=== PATIENT | female | born 1970 | race African-American/Black ===

== ENCOUNTER 2017-08-02 21:08 | Inpatient (IN) | payer MEDICAID ==
[~2017-08-02] VITALS: Ht 160 cm; Wt 99.8 kg
[2017-08-02] MEDS ORDERED: MORPHINE SULFATE 4 MG/ML CPJ (NOT FOR IM USE) IV STA (23:05)
[2017-08-02] MEDS ORDERED: ONDANSETRON HCL 4MG/2ML VIAL IV STA (23:05)
[2017-08-02] MEDS ORDERED: NITROGLYCERIN OINT 1GM/INCH UDPKT TD ONE (23:15)
[2017-08-02] MEDS ORDERED: ASPIRIN 81MG TABLET PO ONE (23:15)
[2017-08-02 23:38] LABS: BASOPHILS % 0.6 % (0.0-2.0); HEMATOCRIT. 35.3 % (36.0-48.0); HEMOGLOBIN. 11.8 g/dL (12.0-16.0); LYMPHOCYTES % 26.5 % (20.0-50.0); MEAN CORPUSCULAR HEMOGLOBIN 26.2 pg (28.0-32.0); MEAN CORPUSCULAR VOLUME 78.5 fL (81.0-99.0); MEAN PLATELET VOLUME 7.7 fl (7.4-10.4); MONOCYTES % 4.4 % (2.0-8.0); NEUTROPHILS % 66.5 % (40.0-76.0); PLATELET 235 x1000/uL (130-400); RED BLOOD CELL COUNT 4.49 mill/uL (4.2-5.4)
[2017-08-02 23:49] LABS: D-DIMER 0.29 mg/L FEU (<0.50); INR 1.1; PROTHROMBIN TIME 10.9 sec (9.4-11.6)
[2017-08-02 23:52] LABS: HCG SCREEN NEGATIVE
[2017-08-02 23:55] LABS: CARBON DIOXIDE 28 mEq/L (21-32); CHLORIDE 106 mEq/L (98-107); ETHANOL BLOOD < 10 mg/dL; TROPONIN I < 0.02 ng/mL (0.00-0.04)
[2017-08-03 05:00] VITALS: BP 103/54
[2017-08-03] MEDS ORDERED: ENAL10TA PO (05:30)
[2017-08-03] MEDS ORDERED: SPIR50TA26 PO (05:30)
[2017-08-03] MEDS ORDERED: CARV6.2548 PO (05:30)
[2017-08-03] MEDS ORDERED: PRAV80TA21 PO (05:30)
[2017-08-03] MEDS ORDERED: FURO-151 PO (05:30)
[2017-08-03] MEDS ORDERED: METF500T4 PO (05:30)
[2017-08-03] MEDS ORDERED: ASPI-1159 PO (05:30)
[2017-08-03 07:40] VITALS: BP 102/60
[2017-08-03] MEDS ORDERED: ACETAMINOPHEN 325MG TABLET PO PRN (08:15)
[2017-08-03] MEDS ORDERED: HYDROMORPHONE HCL/PF 2MG/ML CPJ IV PRN (08:15)
[2017-08-03] MEDS ORDERED: ONDANSETRON HCL 4MG/2ML VIAL IV PRN (08:15)
[2017-08-03] MEDS ORDERED: ASPIRIN 81MG EC TABLET PO SCH (09:00)
[2017-08-03] MEDS ORDERED: DOCUSATE SODIUM 100MG CAPSULE PO PRN (09:00)
[2017-08-03] MEDS: ENOXAPARIN 30MG/0.3ML SYR SUBCUT SCH ×2 (11:00→20:55)
[2017-08-03 11:21] LABS: CARBON DIOXIDE 24 mEq/L (21-32); CHLORIDE 107 mEq/L (98-107); HDL CHOLESTEROL 31 mg/dL (40-59); LDL CHOLESTEROL 71 mg/dL (5-100)
[2017-08-03 11:48] LABS: BASOPHILS % 0.6 % (0.0-2.0); EOSINOPHILS % 1.8 % (0.0-5.0); HEMATOCRIT. 33.4 % (36.0-48.0); HEMOGLOBIN. 10.9 g/dL (12.0-16.0); LYMPHOCYTES % 21.8 % (20.0-50.0); MEAN CORPUSCULAR HEMOGLOBIN 25.8 pg (28.0-32.0); MEAN CORPUSCULAR VOLUME 79.2 fL (81.0-99.0); MEAN PLATELET VOLUME 8.5 fl (7.4-10.4); MONOCYTES % 5.3 % (2.0-8.0); NEUTROPHILS % 70.5 % (40.0-76.0); PLATELET 212 x1000/uL (130-400); RED BLOOD CELL COUNT 4.22 mill/uL (4.2-5.4); RED CELL DISTRIBUTION WIDTH 14.9 % (11.6-14.6)
[2017-08-03 12:00] VITALS: BP 96/63
[2017-08-03] MEDS ORDERED: ENALAPRIL 2.5MG TABLET PO SCH (12:31)
[2017-08-03] MEDS ORDERED: CARVEDILOL 3.125 MG TABLET PO SCH (12:32)
[2017-08-03] MEDS ORDERED: DEXTROSE 50% WATER 50ML SYRINGE IV PRN (13:00)
[2017-08-03] MEDS: BLOOD SUGAR DIAGNOSTIC STRIP TEST SCH ×3 (13:12→20:54)
[2017-08-03] MEDS: INSULIN LISPRO 100 UNITS/ML SUBCUT SCH ×3 (13:26→20:54)
[2017-08-03 16:30] VITALS: BP 101/64
[2017-08-03 17:23] LABS: TROPONIN I < 0.02 ng/mL (0.00-0.04)
[2017-08-03 20:00] VITALS: BP 105/58
[2017-08-03] MEDS: ATORVASTATIN CALCIUM 40MG TABLET PO SCH (20:55)
[2017-08-04] VITALS (7 sets, daily range): BP systolic 97–120; BP diastolic 58–67
[2017-08-04] MEDS: INSULIN LISPRO 100 UNITS/ML SUBCUT SCH ×4 (06:28→21:00)
[2017-08-04] MEDS: BLOOD SUGAR DIAGNOSTIC STRIP TEST SCH ×4 (06:28→21:35)
[2017-08-04 06:57] LABS: BASOPHILS % 0.5 % (0.0-2.0); EOSINOPHILS % 2.2 % (0.0-5.0); HEMATOCRIT. 32.2 % (36.0-48.0); HEMOGLOBIN. 10.8 g/dL (12.0-16.0); LYMPHOCYTES % 28.8 % (20.0-50.0); MEAN CORPUSCULAR HEMOGLOBIN 26.2 pg (28.0-32.0); MEAN PLATELET VOLUME 8.5 fl (7.4-10.4); MONOCYTES % 6.9 % (2.0-8.0); NEUTROPHILS % 61.6 % (40.0-76.0); PLATELET 206 x1000/uL (130-400); RED BLOOD CELL COUNT 4.13 mill/uL (4.2-5.4); RED CELL DISTRIBUTION WIDTH 14.9 % (11.6-14.6)
[2017-08-04] MEDS: METFORMIN HCL 500MG TABLET PO SCH ×2 (08:34→17:36)
[2017-08-04] MEDS: FUROSEMIDE 40MG TABLET PO SCH (08:34)
[2017-08-04] MEDS: CARVEDILOL 6.25 MG TABLET PO SCH ×2 (08:35→17:37)
[2017-08-04] MEDS: ASPIRIN 81MG EC TABLET PO SCH (08:35)
[2017-08-04] MEDS: SPIRONOLACTONE 50MG TABLET PO SCH (08:35)
[2017-08-04] MEDS: ENOXAPARIN 30MG/0.3ML SYR SUBCUT SCH ×2 (08:36→20:41)
[2017-08-04] MEDS: ENALAPRIL 10MG TABLET PO SCH ×2 (08:36→17:36)
[2017-08-04 08:51] LABS: CARBON DIOXIDE 26 mEq/L (21-32); CHLORIDE 108 mEq/L (98-107)
[2017-08-04 09:46] LABS: *AMPHETAMINES SCREEN URINE NEGATIVE (NEGATIVE); *BARBITURATES SCREEN URINE NEGATIVE (NEGATIVE); *BENZODIAZEPINES SCREEN URINE NEGATIVE (NEGATIVE); *COCAINE SCREEN URINE NEGATIVE (NEGATIVE); CANNABINOID URINE SCREEN NEGATIVE (NEGATIVE); METHADONE URINE SCREEN NEGATIVE (NEGATIVE); PHENCYCLIDINE URINE SCREEN NEGATIVE (NEGATIVE)
[2017-08-04 09:52] LABS: OPIATES URINE SCREEN PRESUMTIVE POSITIVE (NEGATIVE)
[2017-08-04] MEDS ORDERED: REGADENOSON 0.4 MG/5 ML IV ONE (11:30)
[2017-08-04] MEDS: ATORVASTATIN CALCIUM 40MG TABLET PO SCH (20:42)
[2017-08-05] VITALS (7 sets, daily range): BP systolic 101–115; BP diastolic 51–71
[2017-08-05 06:06] LABS: BASOPHILS % 0.7 % (0.0-2.0); EOSINOPHILS % 1.8 % (0.0-5.0); HEMATOCRIT. 34.1 % (36.0-48.0); HEMOGLOBIN. 11.2 g/dL (12.0-16.0); LYMPHOCYTES % 24.2 % (20.0-50.0); MEAN CORPUSCULAR HEMOGLOBIN 25.9 pg (28.0-32.0); MEAN CORPUSCULAR VOLUME 78.8 fL (81.0-99.0); MEAN PLATELET VOLUME 7.9 fl (7.4-10.4); MONOCYTES % 5.9 % (2.0-8.0); NEUTROPHILS % 67.4 % (40.0-76.0); PLATELET 226 x1000/uL (130-400); RED BLOOD CELL COUNT 4.33 mill/uL (4.2-5.4)
[2017-08-05 06:27] LABS: CHLORIDE 104 mEq/L (98-107)
[2017-08-05 06:43] LABS: CARBON DIOXIDE 25 mEq/L (21-32)
[2017-08-05] MEDS: BLOOD SUGAR DIAGNOSTIC STRIP TEST SCH ×4 (07:33→21:47)
[2017-08-05] MEDS: METFORMIN HCL 500MG TABLET PO SCH ×2 (07:33→17:15)
[2017-08-05] MEDS: INSULIN LISPRO 100 UNITS/ML SUBCUT SCH ×4 (07:33→21:00)
[2017-08-05] MEDS: ENOXAPARIN 30MG/0.3ML SYR SUBCUT SCH ×2 (09:00→21:48)
[2017-08-05] MEDS: ASPIRIN 81MG EC TABLET PO SCH (09:00)
[2017-08-05] MEDS: SPIRONOLACTONE 50MG TABLET PO SCH (09:00)
[2017-08-05] MEDS: CARVEDILOL 6.25 MG TABLET PO SCH ×2 (09:00→17:00)
[2017-08-05] MEDS: ENALAPRIL 10MG TABLET PO SCH ×2 (09:00→17:00)
[2017-08-05] MEDS: FUROSEMIDE 40MG TABLET PO SCH (09:00)
[2017-08-05] MEDS ORDERED: REGADENOSON 0.4 MG/5 ML IV ONE (09:24)
[2017-08-05] MEDS ORDERED: SODIUM CHLORIDE 0.9% 10ML VIAL ONE (10:47)
[2017-08-05] MEDS: ATORVASTATIN CALCIUM 40MG TABLET PO SCH (21:44)
[2017-08-06] VITALS: BP 102/59
[2017-08-06 04:00] VITALS: BP 100/60
[2017-08-06] MEDS: INSULIN LISPRO 100 UNITS/ML SUBCUT SCH ×4 (05:56→20:52)
[2017-08-06] MEDS: BLOOD SUGAR DIAGNOSTIC STRIP TEST SCH ×4 (05:56→20:39)
[2017-08-06 08:00] VITALS: BP 101/57
[2017-08-06] MEDS: SPIRONOLACTONE 50MG TABLET PO SCH (08:08)
[2017-08-06] MEDS: METFORMIN HCL 500MG TABLET PO SCH ×2 (08:09→18:10)
[2017-08-06] MEDS: ENOXAPARIN 30MG/0.3ML SYR SUBCUT SCH ×2 (08:09→20:50)
[2017-08-06] MEDS: ASPIRIN 81MG EC TABLET PO SCH (08:09)
[2017-08-06] MEDS: FUROSEMIDE 40MG TABLET PO SCH (08:09)
[2017-08-06] MEDS: ENALAPRIL 10MG TABLET PO SCH ×2 (08:10→17:00)
[2017-08-06] MEDS: CARVEDILOL 6.25 MG TABLET PO SCH ×2 (08:10→17:00)
[2017-08-06 12:00] VITALS: BP 107/76
[2017-08-06 20:00] VITALS: BP 112/71
[2017-08-06] MEDS: ATORVASTATIN CALCIUM 40MG TABLET PO SCH (20:39)
[2017-08-07] VITALS: BP 108/49
[2017-08-07 04:00] VITALS: BP 116/46
[2017-08-07] MEDS: BLOOD SUGAR DIAGNOSTIC STRIP TEST SCH (06:00)
[2017-08-07 08:00] VITALS: BP 107/61
[2017-08-07] MEDS: INSULIN LISPRO 100 UNITS/ML SUBCUT SCH (08:10)
[2017-08-07] MEDS: CARVEDILOL 6.25 MG TABLET PO SCH (09:00)
[2017-08-07] MEDS: ASPIRIN 81MG EC TABLET PO SCH (09:00)
[2017-08-07] MEDS: ENOXAPARIN 30MG/0.3ML SYR SUBCUT SCH (09:00)
[2017-08-07] MEDS: ENALAPRIL 10MG TABLET PO SCH (09:00)
[2017-08-07] MEDS: METFORMIN HCL 500MG TABLET PO SCH (09:00)
[2017-08-07] MEDS: SPIRONOLACTONE 50MG TABLET PO SCH (09:00)
[2017-08-07] MEDS: FUROSEMIDE 40MG TABLET PO SCH (09:00)
[2017-08-07 09:19] VITALS: BP 107/61
== END 2017-08-07 13:46 | disposition home or self-care (01) | DRG 243 ==
LOC: ER 21:08 → OBSVTOIN 08-03 00:09 → 7WST 08-03 00:09 → INTOOBSV 08-03 00:09 → ENRESERV 08-03 04:25
PROVIDERS: ADMIT Internal Medicine Geriatric Medicine; ATTEND Internal Medicine Geriatric Medicine
DX: K21.9 Gastro-esophageal reflux disease without esophagitis (principal); I42.0 Dilated cardiomyopathy; I11.0 Hypertensive heart disease with heart failure; I50.22 Chronic systolic (congestive) heart failure; E11.69 Type 2 diabetes mellitus with other specified complication; D50.9 Iron deficiency anemia, unspecified; F17.210 Nicotine dependence, cigarettes, uncomplicated; I51.3 Intracardiac thrombosis, not elsewhere classified; F32.9 Major depressive disorder, single episode, unspecified; M94.0 Chondrocostal junction syndrome [Tietze]; J44.9 Chronic obstructive pulmonary disease, unspecified; F41.9 Anxiety disorder, unspecified; E66.9 Obesity, unspecified; E78.00 Pure hypercholesterolemia, unspecified; F43.10 Post-traumatic stress disorder, unspecified; I25.10 Atherosclerotic heart disease of native coronary artery without angina pectoris; I44.0 Atrioventricular block, first degree; Z59.0 Homelessness; Z68.39 Body mass index [BMI] 39.0-39.9, adult; Z95.810 Presence of automatic (implantable) cardiac defibrillator; I25.2 Old myocardial infarction; Z79.82 Long term (current) use of aspirin; Z79.899 Other long term (current) drug therapy; Z71.6 Tobacco abuse counseling; Z82.49 Family history of ischemic heart disease and other diseases of the circulatory system
CPT/HCPCS: 36415; 71010; 78452; 80048; 80053; 80061; 80305; 82270; 82553; 82962; 83036; 83690; 83735; 83880; 84443; 84484; 84703; 85025; 85379; 85610; 93005; 93017; 93306; 93970; 96374; 96375; 99285; A4216; A9500; G0482; J1650; J1815; J2270; J2405; J2785

== ENCOUNTER 2017-08-09 23:32 | Emergency (ER) | payer MEDICAID ==
[~2017-08-09] VITALS: Ht 162.6 cm; Wt 84.0 kg
[~2017-08-09 23:32] MED LIST: ASPI-1159 PO; CARV6.2548 PO; ENAL10TA PO; FURO-151 PO; METF500T4 PO; PRAV80TA21 PO; SPIR50TA26 PO
[2017-08-10 01:32] LABS: CLARITY URINE CLOUDY (CLEAR); COLOR URINE DARK YELLOW (YELLOW); GLUCOSE URINE NEGATIVE (NEGATIVE); KETONES URINE TRACE (NEGATIVE); LEUKOCYTE ESTERASE URINE NEGATIVE (NEGATIVE); NITRITE URINE NEGATIVE (NEGATIVE); OCCULT BLOOD URINE NEGATIVE (NEGATIVE); PH URINE 5.5 (4.5-8.0); PROTEIN URINE NEGATIVE (NEGATIVE); SPECIFIC GRAVITY URINE 1.033 (1.005-1.030)
[2017-08-10] MEDS ORDERED: ACETAMINOPHEN 500MG TABLET PO ONE (06:30)
[2017-08-10 07:15] LABS: BASOPHILS % 0.6 % (0.0-2.0); EOSINOPHILS % 2.4 % (0.0-5.0); HEMATOCRIT. 34.5 % (36.0-48.0); HEMOGLOBIN. 11.5 g/dL (12.0-16.0); LYMPHOCYTES % 23.9 % (20.0-50.0); MEAN CORPUSCULAR HEMOGLOBIN 26.3 pg (28.0-32.0); MEAN CORPUSCULAR VOLUME 79.2 fL (81.0-99.0); MEAN PLATELET VOLUME 7.8 fl (7.4-10.4); MONOCYTES % 5.9 % (2.0-8.0); NEUTROPHILS % 67.2 % (40.0-76.0); PLATELET 205 x1000/uL (130-400); RED BLOOD CELL COUNT 4.36 mill/uL (4.2-5.4); RED CELL DISTRIBUTION WIDTH 15.1 % (11.6-14.6)
[2017-08-10 07:17] LABS: PROTHROMBIN TIME 10.5 sec (9.4-11.6)
[2017-08-10 07:27] LABS: CHLORIDE 107 mEq/L (98-107)
[2017-08-10 07:36] LABS: CARBON DIOXIDE 26 mEq/L (21-32)
[2017-08-10] MEDS ORDERED: NITROFURANTOIN 100MG M/M CAPSULE PO ONE (08:00)
[2017-08-10 08:52] LABS: ETHANOL BLOOD < 10 mg/dL
[2017-08-10 13:09] VITALS: BP 110/70
[2017-08-10 14:57] LABS: *AMPHETAMINES SCREEN URINE NEGATIVE (NEGATIVE); *BARBITURATES SCREEN URINE NEGATIVE (NEGATIVE); *BENZODIAZEPINES SCREEN URINE NEGATIVE (NEGATIVE); *COCAINE SCREEN URINE NEGATIVE (NEGATIVE); CANNABINOID URINE SCREEN NEGATIVE (NEGATIVE); METHADONE URINE SCREEN NEGATIVE (NEGATIVE); OPIATES URINE SCREEN NEGATIVE (NEGATIVE); PHENCYCLIDINE URINE SCREEN NEGATIVE (NEGATIVE)
== END 2017-08-10 13:09 | disposition home or self-care (01) ==
LOC: ER 23:32
DX: N39.0 Urinary tract infection, site not specified (principal); I25.10 Atherosclerotic heart disease of native coronary artery without angina pectoris; I10 Essential (primary) hypertension; E11.9 Type 2 diabetes mellitus without complications; F17.200 Nicotine dependence, unspecified, uncomplicated; I25.2 Old myocardial infarction; Z59.0 Homelessness
CPT/HCPCS: 36415; 80053; 80305; 80307; 80329; 81001; 81025; 83690; 85025; 85610; 99284; G0482